=== PATIENT | female | born 1985 ===

== ENCOUNTER 2017-08-30 13:18 | Emergency (ER) | payer OTHER ==
[2017-08-30 13:36] VITALS: RESP 16
[2017-08-30] MEDS ORDERED: Sodium Chloride 0.9% 1,000 ML IV STA (14:17)
[2017-08-30] MEDS ORDERED: Iohexol 240 (50 ml) PO STA (14:17)
[2017-08-30] MEDS ORDERED: Sodium Chloride 0.9% 1,000 ML ONE (14:35)
[2017-08-30] MEDS ORDERED: Iohexol 240 (50 ml) ONE (14:35)
[2017-08-30 14:40] LABS: BASO # 0.1 K/uL (0.0-0.2); BASO % 0.9 % (0.0-2.0); EOS # 0.1 K/uL (0.0-0.7); EOS % 1.3 % (0.0-4.0); MEAN CELL VOLUME 87.8 fL (81.0-99.0); MEAN CORPUSCULAR HEMOGLOBIN 29.1 pg (27.0-31.0); MEAN CORPUSCULAR HGB CONC 33.1 g/dL (33.0-37.0); MEAN PLATELET VOLUME 9.6 fL (7.2-11.7); MONO # 0.6 K/uL (0.0-0.8); RED CELL DISTRIBUTION WIDTH 12.7 % (11.5-14.5); WHITE BLOOD COUNT 7.9 K/uL (4.8-10.8)
[2017-08-30 14:57] LABS: URINE BILIRUBIN NEGATIVE (NEGATIVE); URINE BLOOD 1+ (NEGATIVE); URINE COLOR Straw (YELLOW); URINE GLUCOSE (UA) NORMAL (Normal); URINE KETONE NEGATIVE (NEGATIVE); URINE LEUKOCYTE ESTERASE NEG Leu/uL (Negative); URINE PROTEIN NEGATIVE (NEGATIVE); URINE UROBILINOGEN NORMAL mg/dL (0.2-1.0); WBC URINE < 1 /hpf (0-5)
[2017-08-30 14:57] LABS: ALKALINE PHOSPHATASE 84 U/L (38-126); ALT/SGPT 46 U/L (9-52); AST/SGOT 25 U/L (14-36); BILIRUBIN,TOTAL 0.3 mg/dL (0.2-1.3); BLOOD UREA NITROGEN 8 mg/dL (7-17); CARBON DIOXIDE 26 mmol/L (22-30); CHLORIDE 99 mmol/L (98-107); GFR AFRICAN-AMERICAN > 60; GLUCOSE,RANDOM 82 mg/dL (65-105); POTASSIUM 3.4 mmol/L (3.6-5.2); SODIUM 136 mmol/L (132-148); TOTAL PROTEIN 8.8 g/dL (6.3-8.3)
[2017-08-30 14:59] LABS: ALB/GLOB RATIO 1.1 (1.0-2.1)
[2017-08-30] MEDS ORDERED: Iohexol 350mg/ml 100 ML ONE ×2 (15:50→16:15)
--- NOTE | 2017-08-30 16:56 | CT ---
PROCEDURE: CT Abdomen and Pelvis with contrast HISTORY: deep infection of ambulicus, r/o abscess COMPARISON: None. TECHNIQUE: Contrast dose: 100 cc of Omnipaque Radiation dose: Total exam DLP = 1032 mGy-cm. This CT exam was performed using one or more of the following dose reduction techniques: Automated exposure control, adjustment of the mA and/or kV according to patient size, and/or use of iterative reconstruction technique. FINDINGS: LOWER THORAX: Unremarkable. LIVER: Unremarkable. No gross lesion or ductal dilatation. GALLBLADDER AND BILE DUCTS: Unremarkable. PANCREAS: Unremarkable. No gross lesion or ductal dilatation. SPLEEN: Unremarkable. ADRENALS: Unremarkable. No mass. KIDNEYS AND URETERS: Unremarkable. No hydronephrosis. No solid mass. VASCULATURE: Unremarkable. No aortic aneurysm. BOWEL: Unremarkable. No obstruction. No gross mural thickening. APPENDIX: Normal appendix. PERITONEUM: Unremarkable. No free fluid. No free air. LYMPH NODES: Unremarkable. No enlarged lymph nodes. BLADDER: Unremarkable. REPRODUCTIVE: Unremarkable. BONES: No acute fracture. OTHER FINDINGS: There is no evidence of infection of the umbilicus IMPRESSION: Unremarkable contrast enhanced CT of the abdomen and pelvis.
[2017-08-30 17:06] VITALS: BP 123/70; PULSE 65; TEMP 97.5; O2SAT 100
--- NOTE | 2017-08-30 17:08 | C.PDOC ---
History Of Present Illness 32 year old female presents to the ED for evaluation of periumbilical pain with drainage from umbilical for 1 week. Patient states she recently began using a waist industrial trainer. She denies fever, chills, trauma. Time Seen by Provider: 08/30/17 14:13 Chief Complaint (Nursing): Abnormal Skin Integrity History Per: Patient History/Exam Limitations: no limitations Onset/Duration Of Symptoms: Days (1 week ) Current Symptoms Are (Timing): Still Present Location Of Pain/Discomfort: Periumbilical Quality Of Discomfort: "Pain" Associated Symptoms: denies: Fever, Chills Additional History Per: Patient Past Medical History Reviewed: Historical Data, Nursing Documentation, Vital Signs Vital Signs: Last Vital Signs Temp 97.5 F L 08/30/17 17:05 Pulse 65 08/30/17 17:05 Resp 16 08/30/17 17:05 BP 123/70 08/30/17 17:05 Pulse Ox 100 08/30/17 22:47 - Medical History PMH: No Chronic Diseases Surgical History: No Surg Hx Family History: States: Unknown Family Hx - Social History Hx Alcohol Use: No Hx Substance Use: No - Immunization History Hx Tetanus Toxoid Vaccination: No Hx Influenza Vaccination: No Hx Pneumococcal Vaccination: No Review Of Systems Constitutional: Negative for: Fever, Chills Gastrointestinal: Positive for: Abdominal Pain (periumbilical, with drainge from umbilicus ) Physical Exam - Physical Exam Appears: Non-toxic, No Acute Distress Skin: Normal Color, Warm, Dry Neck: Supple Gastrointestinal/Abdominal: Soft, Tenderness (periumbilical ), No Guarding, No Rebound, Other (white-yellow discoloration noted from umbilicus. palpable indution under skin ) Neurological/Psych: Oriented x3, Normal Speech, Normal Cognition Gait: Steady ED Course And Treatment - Laboratory Results Result Diagrams: 08/30/17 14:33 08/30/17 14:33 O2 Sat by Pulse Oximetry: 100 (RA) Pulse Ox Interpretation: Normal - CT Scan/US CT A/P Other Rad Studies (CT/US): Interpreted By Me, Read By Radiologist, Radiology Report Reviewed CT/US Interpretation: PROCEDURE: CT Abdomen and Pelvis with contrast. HISTORY : deep infection of ambulicus, r/o abscess. COMPARISON: None. TECHNIQUE: Contrast dose: 100 cc of Omnipaque. Radiation dose: Total exam DLP = 1032 mGy- cm. This CT exam was performed using one or more of the following dose reduction techniques: Automated exposure control, adjustment of the mA and/or kV according to patient size, and/or use of iterative reconstruction technique. FINDINGS: LOWER THORAX: Unremarkable. LIVER: Unremarkable. No gross lesion or ductal dilatation. GALLBLADDER AND BILE DUCTS: Unremarkable. PANCREAS: Unremarkable. No gross lesion or ductal dilatation. SPLEEN: Unremarkable. ADRENALS: Unremarkable. No mass. KIDNEYS AND URETERS: Unremarkable. No hydronephrosis. No solid mass. VASCULATURE: Unremarkable. No aortic aneurysm. BOWEL: Unremarkable. No obstruction. No gross mural thickening. APPENDIX: Normal appendix. PERITONEUM: Unremarkable. No free fluid. No free air. LYMPH NODES: Unremarkable. No enlarged lymph nodes. BLADDER: Unremarkable. REPRODUCTIVE: Unremarkable. BONES: No acute fracture. OTHER FINDINGS: There is no evidence of infection of the umbilicus. IMPRESSION: Unremarkable contrast enhanced CT of the abdomen and pelvis. Progress Note: CT A/P, bloodwork, UA ordered and reviewed. CleocinPO, Bactroban TOP, and IVF administered. On reassessment, patient is resting comfortably, showing no signs of distress and is stable for dishcharge. Patient is advised to follow up with PMD within 1-2 days for further evaluation. Disposition - Disposition Disposition: HOME/ ROUTINE Disposition Time: 17:06 Condition: STABLE Additional Instructions: Follow up with PMD within 1-2 days. Return to Ed if feel worse. 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 - Scribe Statement The provider has reviewed the documentation as recorded by the Scribe (MARCEL) All medical record entries made by the Scribe were at my direction and personally dictated by me. I have reviewed the chart and agree that the record accurately reflects my personal performance of the history, physical exam, medical decision making, and the department course for this patient. I have also personally directed, reviewed, and agree with the discharge instructions and disposition.
== END 2017-08-30 17:24 | disposition home or self-care (01) ==
LOC: C.ER 13:18
DX: L08.9 Local infection of the skin and subcutaneous tissue, unspecified (principal)
CPT/HCPCS: 74177; 80053; 81001; 83690; 84703; 85025; 96360; 99285; J7040; Q9966; Q9967